=== PATIENT | male | born 1970 | race American Indian/Alaskan Native ===

== ENCOUNTER 2017-02-04 15:54 | Emergency (ER) | payer OTHER ==
[2017-02-04 16:16] VITALS: BP 137/75
--- NOTE | 2017-02-04 17:34 | Emergency Department Report ---
- General Chief Complaint: Upper Respiratory Infection Stated Complaint: FLU LIKE S/S Source: patient Mode of arrival: Ambulatory Limitations: No Limitations - History of Present Illness Initial Comments: 46-year-old -[place] male comes in today for complaint of stuffy head nasal congestion and sneezing Oddy aches headache 2 weeks. Patient reports that his headache is located in her frontal and occipital region. He denies any diarrhea does admit to nausea and had vomiting a couple times in the last 2 weeks. He has been taking [employer] partners but not holding his pain for long period patient has a past medical history of schizophrenia and PTSD. He is usually followed by the OR. He is on medication but does not know the name of them. Has no known drug allergies. MD Complaint: cough, rhinorrhea, nasal congestion, sinus pain -: week(s) (2) Severity scale (0 -10): 8 Quality: aching, other (head pressure) Consistency: intermittent Improves With: NSAID Worsens With: nothing Associated Symptoms: headache, rhinorrhea, nasal congestion, sore throat, cough , nausea, vomiting Treatments Prior to Arrival: "cold medicine" (multiple in the last 2 weeks) - Related Data Previous Rx's Medication Instructions Recorded Last Taken Type Fexofenadine/Pseudoephedrine 1 each PO BID 30 Days #60 02/04/17 Unknown Rx [Janie-D 12 Hour Tablet] tab.er.12h Fluticasone [Flonase] 1 spray NS QDAY #1 bottle 02/04/17 Unknown Rx Sulfamethoxazole/Trimethoprim 1 each PO BID 10 Days #20 tablet 02/04/17 Unknown Rx [Bactrim DS TAB] Allergies Allergy/AdvReac Type Severity Reaction Status Date / Time No Known Allergies Allergy Verified 02/04/17 16:13 ED Review of Systems ROS: Stated complaint: FLU LIKE S/S Other details as noted in HPI ED Past Medical Hx - Past Medical History Hx Psychiatric Treatment: Yes (Schizophrenia, PTSD) - Social History Smoking Status: Current Every Day Smoker Substance Use Type: None - Medications Home Medications: Home Medications Medication Instructions Recorded Confirmed Last Taken Type Fexofenadine/Pseudoephedrine 1 each PO BID 30 Days #60 02/04/17 Unknown Rx [Janie-D 12 Hour Tablet] tab.er.12h Fluticasone [Flonase] 1 spray NS QDAY #1 bottle 02/04/17 Unknown Rx Sulfamethoxazole/Trimethoprim 1 each PO BID 10 Days #20 tablet 02/04/17 Unknown Rx [Bactrim DS TAB] ED Physical Exam - General Limitations: No Limitations General appearance: alert, in no apparent distress - Head Head exam: Present: atraumatic, normocephalic - Eye Eye exam: Present: normal appearance - ENT ENT exam: Present: mucous membranes moist, TM's normal bilaterally - Expanded ENT Exam Expanded TM/Canal exam: Mastoid Tenderness: Right TM, Left TM - Neck Neck exam: Present: normal inspection - Respiratory Respiratory exam: Present: normal lung sounds bilaterally. Absent: respiratory distress - Cardiovascular Cardiovascular Exam: Present: regular rate, normal rhythm. Absent: systolic murmur, diastolic murmur, rubs, gallop - GI/Abdominal GI/Abdominal exam: Present: soft, normal bowel sounds ED Course Vital Signs 02/04/17 16:13 Temperature 99.4 F Pulse Rate 89 Respiratory 18 Rate Blood Pressure 137/75 O2 Sat by Pulse 98 Oximetry ED Medical Decision Making - Medical Decision Making Patient's been evaluated by this provider fast track. I discussed the patient I 'll place him on antibiotics. I discussed with him to get [id number] Afrin to use twice a day preferably every 12 hours. To use no more than 3 days. Also discussed the patient he needs to be in a H2 daron antihistamine. Such as Janie D Claritin-D. Patient verbalized understanding. Critical care attestation.: If time is entered above; I have spent that time in minutes in the direct care of this critically ill patient, excluding procedure time. ED Disposition Clinical Impression: Sinusitis chronic, frontal Disposition: DC-01 TO HOME OR SELFCARE Is pt being admited?: No Does the pt Need Aspirin: No Condition: Stable Instructions: Sinusitis (ED) Additional Instructions: Complete antibiotics as prescribed. Use nasal spray as prescribed use Afrin as recommended. Take the Janie D to help with the decongestion. Follow-up which her primary care provider if symptoms persist or gets worse. Prescriptions: Fexofenadine/Pseudoephedrine [Janie-D 12 Hour Tablet] 1 each PO BID 30 Days # 60 tab.er.12h Fluticasone [Flonase] 1 spray NS QDAY #1 bottle Sulfamethoxazole/Trimethoprim [Bactrim DS TAB] 1 each PO BID 10 Days #20 tablet Referrals: PRIMARY CARE, [Primary Care Provider] - 3-5 Days
== END 2017-02-04 18:23 | disposition home or self-care (01) ==
LOC: ED 15:54
DX: J32.1 Chronic frontal sinusitis (principal); F17.200 Nicotine dependence, unspecified, uncomplicated
CPT/HCPCS: 99282